=== PATIENT | female | born 1990 | race Caucasian/White ===

== ENCOUNTER 2024-08-25 13:07 | Emergency (ER) | payer OTHER ==
[~2024-08-25] VITALS: Ht 162.6 cm; Wt 98.3 kg
[2024-08-25] MEDS ORDERED: PARO20TA4 PO (13:17)
[2024-08-25] MEDS: LIDOCAINE 1% MDV 20ML VIAL SC ONE (14:20)
[2024-08-25] MEDS: BOOSTRIX VACCINE (TETANUS/DIPHTH/ACEL. PERTUSSIS) 0.5ML SYR IM ONE (14:30)
[2024-08-25] MEDS: BACITRACIN OINTMENT 30GM TUBE TOP STA (14:48)
[2024-08-25 15:07] VITALS: BP 157/99; TEMP 98.1; O2SAT 98
== END 2024-08-25 15:17 | disposition home or self-care (01) ==
LOC: M ED 13:07
DX: S61.412A Laceration without foreign body of left hand, initial encounter (principal); W26.9XXA Contact with unspecified sharp object(s), initial encounter; Y92.9 Unspecified place or not applicable; Y93.9 Activity, unspecified; Y99.0 Civilian activity done for income or pay